=== PATIENT | female | born 1980 | race Caucasian/White ===

== ENCOUNTER 2018-06-21 05:40 | Day surgery (SDC) | payer BC, OTHER ==
[~2018-06-21] VITALS: Ht 170.2 cm; Wt 63.5 kg
[~2018-06-21 05:40] MED LIST: MONONESSA1 EACH PO; PROBIOTIC1 EAC1 PO; SYNTHROID88 MCG PO; ZANTAC 150MG T150 MG PO
[2018-06-21 15:12] VITALS: BP 117/75
[2018-06-21] MEDS ORDERED: PERCOCET 7.5-31 EACH PO (16:34)
[2018-06-21] MEDS ORDERED: ASA5UEC PO (16:34)
[2018-06-21 17:01] VITALS: BP 117/75
--- NOTE | 2018-06-21 17:05 | O ---
[facility] [place] [address] OPERATIVE REPORT Name: PARKER JEWELL Room #: 150-8 [facility]#: [id number] Admission: 06/21/18 Attend Phys: Curt Sarah MD Discharge: Date of : 84 Report #: [id number] THIS REPORT FOR: //name// CC: FAM unknown Curt Sarah DATE OF SERVICE: 06/21/2018 PREOPERATIVE DIAGNOSIS: Left foot midfoot Lisfranc fracture dislocation. POSTOPERATIVE DIAGNOSIS: Left foot midfoot Lisfranc fracture dislocation. PROCEDURE: Left foot Lisfranc percutaneous screw fixation. SURGEON: Curt Sarah M.D. WEB MOBILE DESIGNER: Taylor Obrien. ANESTHESIA: General. ESTIMATED BLOOD LOSS: Minimal. DRAINS: No drains. TOURNIQUET TIME: 20 minutes. DESCRIPTION OF PROCEDURE: The patient was brought to the operating room where she was placed under general anesthesia. Once under adequate general anesthesia, her left lower extremity was prepped and draped in a sterile manner. The extremity was elevated, exsanguinated, tourniquet placed 300 mmHg. Utilizing fluoroscopy for guidance, a bone reduction tenaculum was placed across the midfoot from the medial cuneiform to the base of the second metatarsal. Subsequent reduction of the Lisfranc joint was achieved. Once reduced, a single 4.0 cannulated screw was placed across the joint. This was 34 mm in length. Once in place, the guidewire for the 4.0 cannulated screw was then placed across the Lisfranc joint from the medial cuneiform to the base of the second metatarsal. Subsequent fixation was achieved with a single 4.0 screw placed across the Lisfranc joint 34 mm in length. Excellent fixation and alignment was achieved as verified under fluoroscopy. Once complete, the wounds were irrigated copiously and closed with jeremy for the skin. The wounds dressed with Xeroform, 4 x 4s, and sterile soft compressive dressing was placed. Tourniquet was let down approximately 20 minutes. Toes were pink and warm with good capillary refill. There were no complications from the procedure. The [address] [address] OPERATIVE REPORT Name: PARKER JEWELL Room #: 150-8 [facility]..#: [id number] Admission: 06/21/18 Attend Phys: Curt Sarah MD Discharge: Date of : 84 Report #: [id number] patient tolerated the procedure well and was taken to the recovery room without incident. <ELECTRONICALLY SIGNED> By: Curt Sarah MD 06/21/18 1705 [id number] Curt Sarah MD /nt
== END 2018-06-21 18:00 | disposition home or self-care (01) ==
LOC: TBA 05:40 → OR 05:40
DX: S93.325A Dislocation of tarsometatarsal joint of left foot, initial encounter (principal); E03.9 Hypothyroidism, unspecified; K21.9 Gastro-esophageal reflux disease without esophagitis; Z98.890 Other specified postprocedural states; Z79.899 Other long term (current) drug therapy; Z79.82 Long term (current) use of aspirin; Z79.891 Long term (current) use of opiate analgesic; X58.XXXA Exposure to other specified factors, initial encounter; Y93.89 Activity, other specified; Y92.89 Other specified places as the place of occurrence of the external cause; Y99.8 Other external cause status
CPT/HCPCS: 50010; 50101; 50386; 51122; 51412; 57091; 62110; 62900; 64037; 70005